=== PATIENT | male | born 1995 | race Caucasian/White ===

== ENCOUNTER 2024-06-04 18:55 | Emergency (ER) | payer OTHER ==
[2024-06-04 19:03] VITALS: TEMP 98
[2024-06-04 21:10] LABS: Basophils # (A) 0.1 k/uL (0-0.2); Basophils % (A) 1 %; Eosinophils # (A) 0.3 k/uL (0-0.7); Eosinophils % (A) 2 %; HCT 52.8 % (39.0-53.0); HGB 17.5 gm/dL (13.0-17.5); Lymphocytes % (A) 27 %; MCH 29.9 pg (25.0-35.0); MCHC 33.2 g/dL (31.0-37.0); MCV 90.2 fL (80.0-100.0); Mean Platelet Volume 7.5; Monocytes # (A) 0.7 k/uL (0-1.0); Monocytes % (A) 6 %; Neutrophils % (A) 62 %; Platelet Count 261 k/uL (150-450); RBC 5.86 m/uL (4.30-5.90); RDW 13.6 % (11.5-15.5); WBC 11.2 k/uL (3.8-10.6)
--- NOTE | 2024-06-04 21:20 | XR ---
EXAMINATION TYPE: XR chest 2V DATE OF EXAM: 06/04/2024 9:11 PM CLINICAL INDICATION: Male, 29 years old with history of shoulder/chest pain; COMPARISON: Chest radiographs from TECHNIQUE: XR chest 2V Frontal view of the chest. FINDINGS: Lungs/Pleura: There is no evidence of pleural effusion, focal consolidation, or pneumothorax. Pulmonary vascularity: Unremarkable. Heart/mediastinum: Cardiomediastinal silhouette is unremarkable. Musculoskeletal: No acute osseous pathology. IMPRESSION: No acute cardiopulmonary disease/process.
[2024-06-04 21:23] LABS: ALT 19 U/L (4-49); AST 28 U/L (17-59); African American GFR (CKD) >90 (>60 ml/min/1.73 sqM); Albumin 5.5 g/dL (3.5-5.0); Alkaline Phosphatase 58 U/L (38-126); Anion Gap 11 mmol/L; Blood Urea Nitrogen 9 mg/dL (9-20); Calcium 10.4 mg/dL (8.4-10.2); Carbon Dioxide 26 mmol/L (22-30); Chloride 101 mmol/L (98-107); Glucose 87 mg/dL (74-99); Non-African American GFR(CKD) >90 (>60 ml/min/1.73 sqM); Potassium 4.5 mmol/L (3.5-5.1); Sodium 138 mmol/L (137-145); Total Bilirubin 0.8 mg/dL (0.2-1.3); Total Protein 8.6 g/dL (6.3-8.2)
[2024-06-04] MEDS: hydrOXYzine HCL 25 MG TAB PO STA (21:27)
--- NOTE | 2024-06-04 22:17 | ED ---
General Adult HPI - General Chief complaint: Extremity Injury, Upper Stated complaint: R Shoulder Burning Time Seen by Provider: 06/04/24 19:33 Source: patient Mode of arrival: ambulatory Limitations: no limitations - History of Present Illness Initial comments: 29-year-old male presenting with chief complaint of burning sensation in his left shoulder. States that he has been to multiple urgent cares and ERs for this issue. He feels the burning in his shoulder that travels down to the superior portion of his chest. He states "I think I freak myself out", states that at times this can be followed by palpitations, rapid breathing, sensation of warmth, tingling of the extremities. He has been told that he has anxiety and has been prescribed hydroxyzine, however he was afraid to take it. He is having no current chest pain. No injury or trauma. Pain is not worse with movement. - Related Data Home Medications Medication Instructions Recorded Confirmed No Known Home Medications 09/17/14 09/17/14 Allergies Allergy/AdvReac Type Severity Reaction Status Date / Time No Known Allergies Allergy Verified 06/04/24 19:03 Review of Systems ROS Statement: Those systems with pertinent positive or pertinent negative responses have been documented in the HPI. ROS Other: All systems not noted in ROS Statement are negative. Past Medical History Past Medical History: No Reported History Additional Past Medical History / Comment(s): heart murmur History of Any Multi-Drug Resistant Organisms: None Reported Past Surgical History: Ear Surgery Past Psychological History: No Psychological Hx Reported Smoking Status: Current every day smoker Past Alcohol Use History: Rare Past Drug Use History: None Reported General Exam Limitations: no limitations General appearance: alert, in no apparent distress Head exam: Present: atraumatic, normocephalic, normal inspection Eye exam: Present: normal appearance, EOMI Neck exam: Present: normal inspection. Absent: meningismus Respiratory exam: Absent: respiratory distress Cardiovascular Exam: Present: regular rate Left Shoulder Exam: Present: normal inspection, full ROM. Absent: tenderness, swelling Neurological exam: Present: alert, oriented X3 Psychiatric exam: Present: normal affect, normal mood Skin exam: Present: warm, dry Course Vital Signs 06/04/24 06/04/24 06/04/24 19:01 19:57 20:47 Temperature 98.0 F Pulse Rate 90 87 87 Respiratory 17 18 18 Rate Blood Pressure 166/88 147/93 147/87 O2 Sat by Pulse 100 99 100 Oximetry 06/04/24 22:57 Temperature Pulse Rate 80 Respiratory 16 Rate Blood Pressure 134/80 O2 Sat by Pulse 99 Oximetry Medical Decision Making - Medical Decision Making Was pt. sent in by a medical professional or institution ([facility] Stephen, [employer], urgent care, hospital, or intermediate...) When possible be specific @ -No Did you speak to anyone other than the patient for history (EMS, parent, family, police, friend...)? What history was obtained from this source @ -No Did you review nursing and triage notes (agree or disagree)? Why? @ -I reviewed and agree with nursing and triage notes Were old charts reviewed (outside hosp., previous admission, EMS record, old EKG, old radiological studies, urgent care reports/EKG's, intermediate records)? Report findings @ -No old charts were reviewed Differential Diagnosis (chest pain, altered mental status, abdominal pain women, abdominal pain men, vaginal bleeding, weakness, fever, dyspnea, syncope, headache, dizziness, GI bleed, back pain, seizure, CVA, palpatations, mental health, musculoskeletal)? @ -Differential Musculoskeletal Muscular strain, contusion, ligament sprain, fracture, arthritis, septic arthritis, bursitis, cellulitis, muscle spasm, nerve compression, DVT, arterial occlusion, herpes zoster, electrolyte abnormality, tumor.... This is not meant to be in all inclusive list EKG interpreted by me (3pts min.). @ -EKG shows sinus rhythm ventricular rate 84. ID interval 124. QRS 101. QT 338. QTc 379. Possible LVH, may also be due to the patient's body habitus but there are large QRS complexes and tall T waves in leads V3 through V5. X-rays interpreted by me (1pt min.). @ -Chest x-ray shows no acute process CT interpreted by me (1pt min.). @ -None U/S interpreted by me (1pt. min.). @ -None done What testing was considered but not performed or refused? (CT, X-rays, U/S, labs)? Why? @ -None What meds were considered but not given or refused? Why? @ -None Did you discuss the management of the patient with other professionals (professionals i.e. Dr., PA, SLIDE MAKER, lab, RT, psych nurse, social media analyst, computing consultant, teacher, textile technical officer, family service caseworker)? Give summary @ -No Was smoking cessation discussed for >3mins.? @ -No Was critical care preformed (if so, how long)? @ -No Were there social determinants of health that impacted care today? How? (Homelessness, low income, unemployed, alcoholism, drug addiction, transportation, low edu. Level, literacy, decrease access to med. care, group home, re hab)? @ -No Was there de-escalation of care discussed even if they declined (Discuss DNR or withdrawal of care, Hospice)? DNR status @ -No What co-morbidities impacted this encounter? (DM, HTN, Smoking, COPD, CAD, Cancer, CVA, ARF, Chemo, Hep., AIDS, mental health diagnosis, sleep apnea, morbid obesity)? @ -None Was patient admitted / discharged? Hospital course, mention meds given and route, prescriptions, significant lab abnormalities, going to OR and other pertinent info. @ -29-year-old male presenting with chief complaint of burning sensation in his shoulder. He is concerned that this may have something to do with his heart and has been seen at multiple facilities. He has been told that he has anxiety and he does believe that he starts to panic more when he gets the symptoms. History and physical exam are conducted. WBC 11.2. Chest x-ray shows no acute process EKG shows no ischemic changes. There are enlarged QRS complexes and tall T waves in leads V3 through V5. Patient was given hydroxyzine. On reassessment he reports improvement in his symptoms. He is educated on today's findings. He is provided with PCP suggestions and follow-up with cardiology. Discharged ho me. Follow-up with PCP. Report back to ER with any new or worsening symptoms. Discussed return parameters and answered all questions. Patient conveyed verbal understanding and agreed to the plan. I discussed this case in detail with my attending Dr. salazar Undiagnosed new problem with uncertain prognosis? @ -No Drug Therapy requiring intensive monitoring for toxicity (Heparin, Nitro, Insulin, Cardizem)? @ -No Were any procedures done? @ -No Diagnosis/symptom? @ -Anxiety Acute, or Chronic, or Acute on Chronic? @ -Acute Uncomplicated (without systemic symptoms) or Complicated (systemic symptoms)? @ -Complicated Side effects of treatment? @ -No Exacerbation, Progression, or Severe Exacerbation? @ -No Poses a threat to life or bodily function? How? (Chest pain, USA, NM, pneumonia, PE, COPD, DKA, ARF, appy, cholecystitis, CVA, Diverticulitis, Homicidal, Suicidal, threat to staff... and all critical care pts) @ -Unlikely - Lab Data Result diagrams: 06/04/24 20:39 06/04/24 20:39 Lab Results 06/04/24 06/04/24 06/04/24 Range/Units 20:39 20:39 20:39 WBC 11.2 H (3.8-10.6) k/uL RBC 5.86 (4.30-5.90) m/uL Hgb 17.5 (13.0-17.5) gm/dL Hct 52.8 (39.0-53.0) % MCV 90.2 (80.0-100.0) fL MCH 29.9 (25.0-35.0) pg MCHC 33.2 (31.0-37.0) g/dL RDW 13.6 (11.5-15.5) % Plt Count 261 (150-450) k/uL MPV 7.5 Neutrophils % 62 % Lymphocytes % 27 % Monocytes % 6 % Eosinophils % 2 % Basophils % 1 % Neutrophils # 7.0 (1.3-7.7) k/uL Lymphocytes # 3.0 (1.0-4.8) k/uL Monocytes # 0.7 (0-1.0) k/uL Eosinophils # 0.3 (0-0.7) k/uL Basophils # 0.1 (0-0.2) k/uL Sodium 138 (137-145) mmol/L Potassium 4.5 (3.5-5.1) mmol/L Chloride 101 (98-107) mmol/L Carbon Dioxide 26 (22-30) mmol/L Anion Gap 11 mmol/L BUN 9 (9-20) mg/dL Creatinine 0.99 (0.66-1.25) mg/dL Est GFR (CKD-EPI)AfAm >90 (>60 ml/min/1.73 sqM) Est GFR (CKD-EPI)NonAf >90 (>60 ml/min/1.73 sqM) Glucose 87 (74-99) mg/dL Calcium 10.4 H (8.4-10.2) mg/dL Total Bilirubin 0.8 (0.2-1.3) mg/dL AST 28 (17-59) U/L ALT 19 (4-49) U/L Alkaline Phosphatase 58 (38-126) U/L Troponin I <0.012 (0.000-0.034) ng/mL Total Protein 8.6 H (6.3-8.2) g/dL Albumin 5.5 H (3.5-5.0) g/dL Disposition Clinical Impression: Anxiety, Atypical chest pain Disposition: HOME SELF-CARE Condition: Good Instructions (If sedation given, give patient instructions): Chest Pain (ED), Anxiety (ED) Additional Instructions: Follow-up with PCP and cardiology. Report back to ER with any new or worsening symptoms. Is patient prescribed a controlled substance at d/c from ED?: No Referrals: Elan Corona MD [STAFF PHYSICIAN] - 1-2 days None,Stated [Primary Care Provider] - 1-2 days Dale Portillo MD [STAFF PHYSICIAN] - 1-2 days Toño Millan MD [STAFF PHYSICIAN] - 1-2 days Time of Disposition: 22:17
[2024-06-04 23:01] VITALS: BP 134/80; PULSE 80; RESP 16
== END 2024-06-04 23:09 | disposition home or self-care (01) ==
LOC: EC 18:55
DX: R52 Pain, unspecified
CPT/HCPCS: 36415; 71046; 80053; 84484; 85025; 93005; 99284

== ENCOUNTER → 2024-07-06 | Outpatient (CLI) | payer OTHER ==
--- NOTE | 2024-07-07 07:59 | CA ---
Transthoracic Echo Report Name: Stan Pereira Age: 29 Gender: M : 1995 Exam Date: 07/06/2024 17:46 Exam Location: [facility] Ht (in): 72 Wt (lb): 135 Ordering Physician: Elan Corona MD Attending/Referring Phys: Chloe KRISHNAN Group Leader [employer] Nicole Melendez RDCS Procedure CPT: Indications: R01.1 cardiac murmur Cardiac Hx: Technical Quality: Fair Contrast 1: Total Dose (mL): Contrast 2: Total Dose (mL): MEASUREMENTS (Male / Female) Normal Values 2D ECHO LV Diastolic Diameter PLAX 5.8 cm 4.2 - 5.9 / 3.9 - 5.3 cm LV Systolic Diameter PLAX 3.2 cm IVS Diastolic Thickness 1.3 cm 0.6 - 1.0 / 0.6 - 0.9 cm LVPW Diastolic Thickness 1.7 cm 0.6 - 1.0 / 0.6 - 0.9 cm LV Relative Wall Thickness 0.5 RV Internal Dim ED PLAX 2.8 cm LA Volume 169.5 cm??? 18 - 58 / 22 - 52 cm??? LA Volume Index 96.9 cm???/m??? 16 - 28 cm???/m??? M-MODE Aortic Root Diameter MM 4.1 cm LA Systolic Diameter MM 5.0 cm LA Ao Ratio MM 1.2 AV Cusp Separation MM 2.2 cm DOPPLER AV Peak Velocity 116.4 cm/s AV Peak Gradient 5.4 mmHg AV Mean Velocity 65.6 cm/s AV Mean Gradient 2.2 mmHg AV Velocity Time Integral 12.5 cm LVOT Peak Velocity 89.1 cm/s LVOT Peak Gradient 3.2 mmHg LVOT Velocity Time Integral 10.8 cm MV Peak Velocity 205.9 cm/s MV Peak Gradient 17.0 mmHg MV Mean Velocity 95.8 cm/s MV Mean Gradient 4.7 mmHg MV Velocity Time Integral 44.5 cm MV Area PHT 4.1 cm??? MR Peak Velocity 503.2 cm/s MR Peak Gradient 101.3 mmHg Mitral E Point Velocity 153.3 cm/s Mitral A Point Velocity 69.6 cm/s Mitral E to A Ratio 2.2 MV Deceleration Time 182.9 ms MV E' Velocity 11.6 cm/s Mitral E to MV E' Ratio 13.2 TR Peak Velocity 223.0 cm/s TR Peak Gradient 19.9 mmHg Right Ventricular Systolic Press 24.9 mmHg FINDINGS Left Ventricle Mildly increased left ventricular wall thickness. Normal left ventricular systolic function with no obvious regional wall motion abnormalities. Left ventricular ejection fraction is estimated at 55-60 %. Grade 1 diastolic dysfunction. Right Ventricle Normal right ventricular size and function. Right ventricular systolic pressure within normal limits. Right Atrium Normal right atrial size. Left Atrium Severely increased left atrial volume. Severely increased left atrial area. Mitral Valve Severe prolapse of the anterior mitral valve leaflet. Severe prolapse of the posterior mitral valve leaflet. Severe mitral regurgitation. Anteriorly directed mitral regurgitation jet. Aortic Valve Trileaflet aortic valve. No aortic valve stenosis or regurgitation. Tricuspid Valve Structurally normal tricuspid valve. No tricuspid stenosis, regurgitation or prolapse. Pulmonic Valve Structurally normal pulmonic valve. Trace pulmonic regurgitation. Pericardium No pericardial effusion. Aorta Normal size aortic root and proximal ascending aorta. CONCLUSIONS Severe mitral valve prolapse with severe mitral regurgitation that is predominantly anteriorly directed Ejection fraction of 55-60% Severely dilated left atrium Consider transesophageal echo for further evaluation of the mitral regurgitation Previewed by: Dr. Mason Pan MD (Electronically Signed) Final Date: 07 July 2024 07:58
== END | disposition home or self-care (01) ==
LOC: RADECHMAIN 17:38
PROVIDERS: ATTEND Family Medicine
DX: R01.1 Cardiac murmur, unspecified
CPT/HCPCS: 93306

== ENCOUNTER 2024-08-18 07:45 | Day surgery (SDC) | payer OTHER ==
[2024-08-15 16:04] VITALS: BMI 19.2
[2024-08-18] MEDS: SODIUM CHLORIDE 0.9% 500 ML 500 ML IV ONE (07:57)
[2024-08-18 08:01] VITALS: TEMP 98.3
[2024-08-18 08:16] VITALS: RESP 16
[2024-08-18] MEDS: MIDAZOLAM 2 MG/2 ML VIAL IVP ONE (08:24)
[2024-08-18] MEDS: BENZOCAINE SPRAY 1 EACH MM ONE (08:24)
[2024-08-18] MEDS: fentaNYL (PF) 50 MCG/ML 2 ML AMP IVP ONE (08:24)
[2024-08-18 09:53] VITALS: BP 153/85; PULSE 78
--- NOTE | 2024-08-18 10:26 | ECHOT ---
TRANSESOPHAGEAL ECHOCARDIOGRAM INDICATION: Mitral regurgitation. PROCEDURE NOTE: After obtaining informed consent, transesophageal echocardiogram was performed in left lateral position using an Omniplane probe. Local and IV sedation were obtained using Xylocaine spray, 1 mg Versed and 50 mcg of fentanyl. The patient tolerated the procedure well without any obvious immediate complications. Total sedation time was 10 minutes. FINDINGS: 1. Mitral valve shows mitral valve prolapse predominantly involving the posterior mitral leaflet with severe anteriorly directed mitral regurgitation. Left atrium appears enlarged. Right atrium and right ventricle seen within normal limits. 2. Left ventricle has normal size and systolic function. There is aortic annular ectasia. It measures about 3.7 cm. Aortic valve is a 3-leaflet valve. There is no evidence of aortic stenosis or regurgitation. There is mild tricuspid regurgitation. Interatrial septum, there is no evidence of [id number] shunt by color-flow Doppler or [id number] shunt by agitated saline contrast study. CONCLUSION: Severe anteriorly directed mitral regurgitation with prolapse of the posterior mitral leaflet. PLAN: I am going to perform cardiac catheterization and refer the patient for mitral valve repair. My office will call and set up the heart catheterization. MMODL / IJN: [id number] /
== END 2024-08-18 09:33 | disposition home or self-care (01) ==
LOC: CATHCVL 07:45
PROVIDERS: ATTEND Internal Medicine Cardiovascular Disease
DX: I34.0 Nonrheumatic mitral (valve) insufficiency (principal); F17.210 Nicotine dependence, cigarettes, uncomplicated; Z83.49 Family history of other endocrine, nutritional and metabolic diseases; Z79.51 Long term (current) use of inhaled steroids
CPT/HCPCS: 93312; 93320; 93325; J2250; J3010

== ENCOUNTER 2024-09-20 08:42 | Day surgery (SDC) | payer OTHER ==
[~2024-09-20 08:42] MED LIST: ALPRAZolam 0.25 MG TAB PO PRN; ALPRAZolam 0.5 MG TAB PO PRN; NITROGLYCERIN SL TABS 0.4 MG TAB SUBLINGUAL PRN
[2024-09-20] MEDS: IV FLUID CONTINUATION 1,000 ML IV ONE (08:54)
[2024-09-20] MEDS: ASPIRIN 325 MG TAB PO STA (09:15)
[2024-09-20] MEDS: SODIUM CHLORIDE 0.9% 1,000 ML in EMPTY BAG 1 BAG IV SCH (09:16)
[2024-09-20 09:24] LABS: Basophils # (A) 0.1 k/uL (0-0.2); Basophils % (A) 1 %; Eosinophils # (A) 0.1 k/uL (0-0.7); Eosinophils % (A) 1 %; HCT 49.7 % (39.0-53.0); HGB 16.8 gm/dL (13.0-17.5); Lymphocytes # (A) 2.6 k/uL (1.0-4.8); Lymphocytes % (A) 38 %; MCHC 33.7 g/dL (31.0-37.0); MCV 88.9 fL (80.0-100.0); Mean Platelet Volume 7.2; Monocytes # (A) 0.5 k/uL (0-1.0); Monocytes % (A) 8 %; Neutrophils # (A) 3.3 k/uL (1.3-7.7); Neutrophils % (A) 50 %; Platelet Count 219 k/uL (150-450); RBC 5.59 m/uL (4.30-5.90); RDW 13.1 % (11.5-15.5); WBC 6.7 k/uL (3.8-10.6)
[2024-09-20 09:26] VITALS: RESP 18; TEMP 97.8
[2024-09-20 09:45] LABS: African American GFR (CKD) >90 (>60 ml/min/1.73 sqM); Anion Gap 8 mmol/L; Blood Urea Nitrogen 14 mg/dL (9-20); Carbon Dioxide 29 mmol/L (22-30); Chloride 101 mmol/L (98-107); Glucose 105 mg/dL (74-99); Non-African American GFR(CKD) 88 (>60 ml/min/1.73 sqM); Potassium 4.2 mmol/L (3.5-5.1); Sodium 138 mmol/L (137-145)
[2024-09-20] MEDS: LIDOCAINE 1% INJ 10MG/ML (20 ML MDV) SQ ONE (10:47)
[2024-09-20] MEDS: MIDAZOLAM 2 MG/2 ML VIAL IVP ONE (10:47)
[2024-09-20] MEDS: fentaNYL (PF) 50 MCG/1 ML VIAL IVP ONE (10:47)
[2024-09-20] MEDS: VERAPAMIL SYRINGE (5 MG/10 ML) INTRAARTER ONE (10:49)
[2024-09-20] MEDS: HEPARIN SODIUM 1,000 UN/ML (10ML VL) IVP ONE (10:56)
[2024-09-20] MEDS: IOPAMIDOL-370 100ML BTL INJ ONE (11:11)
[2024-09-20] MEDS ORDERED: RX INFO: IV CONTRAST WAS GIVEN 1 EACH MISC MISCELLANE PRN (11:42)
[2024-09-20] MEDS ORDERED: SODIUM CHLORIDE 0.9% 1,000 ML IV SCH (11:45)
[2024-09-20 14:55] VITALS: BP 129/73; PULSE 80
--- NOTE | 2024-09-20 21:58 | CC ---
CARDIAC CATHETERIZATION REPORT INDICATION: Severe mitral regurgitation. PROCEDURE NOTE: After obtaining informed consent, left heart catheterization was performed via the right radial artery using standard Ada catheters. The patient tolerated the procedure well without any obvious immediate complications, received moderate conscious sedation. Total sedation time was 21 minutes. The right radial artery access was obtained using Seldinger technique. A 6-Swedish sheath was placed. Catheters and wires were floated into the ascending aorta under fluoroscopic guidance. The patient received verapamil and heparin per protocol. A TR band will be used for hemostasis. FINDINGS: 1. Hemodynamics: Left ventricular end-diastolic pressure is 7 to 10 mm. There is no significant gradient across the aortic valve. 2. Left ventriculogram: Left ventriculogram is performed in VICTOR position and shows mildly dilated left ventricle with normal LV function and 2 to 3+ mitral regurgitation. 3. ANGIOGRAPHIC DATA: a.Right coronary artery: Right coronary artery is a large dominant vessel and is free of stenosis. b.Left main coronary artery is a short vessel, divides into left anterior descending coronary artery and circumflex coronary artery. c.LAD and its branches, circumflex coronary artery and its branches are free of significant stenosis. CONCLUSIONS: 1. Normal coronary arteries. 2. 2 to 3+ mitral regurgitation. 3. Normal LV function. 4. Aortic root appears normal. PLAN: I am going to talk to the patient about mitral valve repair and his followup. MMODL / IJN: [id number] /
== END 2024-09-20 14:57 | disposition home or self-care (01) ==
LOC: CATHCVL 08:42
PROVIDERS: ATTEND Internal Medicine Cardiovascular Disease
DX: I34.0 Nonrheumatic mitral (valve) insufficiency (principal); J44.9 Chronic obstructive pulmonary disease, unspecified; Z79.899 Other long term (current) drug therapy; Z87.891 Personal history of nicotine dependence; Z82.49 Family history of ischemic heart disease and other diseases of the circulatory system
CPT/HCPCS: 93458; 80048; 85025; J2250; J2003; J1644; Q9967; J3010

== ENCOUNTER 2024-10-06 13:50 | Emergency (ER) | payer OTHER ==
--- NOTE | 2024-10-06 14:31 | ED ---
Chest Pain HPI - General Chief Complaint: Chest Pain Stated Complaint: WALLY Time Seen by Provider: 10/06/24 14:20 Source: patient, RN notes reviewed Mode of arrival: ambulatory Limitations: no limitations - History of Present Illness Initial Comments: This is a 29-year-old male who presents to the emergency department for chest pain. States that yesterday he started to develop pain in the right side of his chest underneath his right rib cage. Today he noticed that whenever he tried to take a deep breath it would cause him pain. It is not hard to breathe and he is not short of breath, he just has pain when he tries to breathe. He has not had any other coughing, congestion, or URI symptoms otherwise. He also denies any episodes of diaphoresis, nausea, or vomiting. MD Complaint: chest pain - Related Data Home Medications Medication Instructions Recorded Confirmed Albuterol Sulfate [Ventolin HFA] 1 - 2 puff INHALATION QID PRN 07/28/24 09/20/24 Previous Rx's Medication Instructions Recorded Diltiazem Cd [Cardizem CD] 120 mg PO DAILY #90 cap 09/20/24 Naproxen Sodium 550 mg PO BID PRN #30 tablet 10/06/24 methocarbamoL [Robaxin-750] 1,500 mg PO TID PRN #20 tab 10/06/24 Allergies Allergy/AdvReac Type Severity Reaction Status Date / Time No Known Allergies Allergy Verified 10/06/24 14:32 Review of Systems ROS Statement: Those systems with pertinent positive or pertinent negative responses have been documented in the HPI. ROS Other: All systems not noted in ROS Statement are negative. Past Medical History Past Medical History: Chest Pain / Angina, COPD, Mitral Valve Prolapse (MVP) Additional Past Medical History / Comment(s): heart murmur, "MVP/regurgitation" chest pain due to anxiety History of Any Multi-Drug Resistant Organisms: None Reported Past Surgical History: Adenoidectomy, Ear Surgery Additional Past Surgical History / Comment(s): Tubes in bilat ears. Past Anesthesia/Blood Transfusion Reactions: No Reported Reaction Additional Past Anesthesia/Blood Transfusion Reaction / Comment(s): No hx of blood transfusion to date. Smoking Status: Former smoker - Past Family History Mother Family Medical History: No Reported History General Exam Limitations: no limitations General appearance: alert, in no apparent distress Head exam: Present: atraumatic, normocephalic, normal inspection Respiratory exam: Present: normal lung sounds bilaterally. Absent: respiratory distress, wheezes, rales, rhonchi, stridor Cardiovascular Exam: Present: regular rate, normal rhythm GI/Abdominal exam: Present: soft, normal bowel sounds. Absent: distended, tenderness, guarding, rebound, rigid Neurological exam: Present: alert, oriented X3, CN II-XII intact Psychiatric exam: Present: normal affect, normal mood Skin exam: Present: warm, dry, intact, normal color. Absent: rash Course Vital Signs 10/06/24 10/06/24 10/06/24 14:32 15:34 15:39 Temperature 97.8 F Pulse Rate 81 75 Respiratory 16 16 20 Rate Blood Pressure 148/88 152/87 O2 Sat by Pulse 98 98 Oximetry 10/06/24 16:22 Temperature Pulse Rate 65 Respiratory 16 Rate Blood Pressure 145/60 O2 Sat by Pulse 98 Oximetry Chest Pain MDM - [facility] This is a 29-year-old male who presents to the emergency department for chest pain. Was pt. sent in by a medical professional or institution? @ -No Did you speak to anyone other than the patient for history? @ -No Did you review nursing and triage notes? @ -Yes, and I agree, it is accurate with regards to the patient's symptoms. Were old charts reviewed? @ -Cardiac catheterization from 09/20/2024 revealing normal coronary arteries. Differential Diagnosis? @ -Differential Chest Pain: Stable Angina, Unstable Angina, STEMI, NSTEMI Aortic Dissection, Pneumothorax, Musculoskeletal, Esophageal Spasm GERD, Cholecystitis, Pancreatitis, Zoster, this is not meant to be an all-inclusive list. EKG interpreted by me (3pts min.)? @ -EKG interpreted by me demonstrating the following: Sinus rhythm. Ventricular rate 77 bpm, ME interval 145 ms, QRS duration 105 ms, QTc 375 ms. X-rays interpreted by me (1pt min.)? @ -Chest x-ray obtained, my interpretation identifies no localized conso lidations or infiltrates. CT interpreted by me (1pt min.)? @ -Not obtained U/S interpreted by me (1pt. min.)? @ -Not obtained What testing was considered but not performed? (CT, X-rays, U/S, labs)? Why? @ -None What meds were considered but not given? Why? @ -None Did you discuss the management of the patient with other professionals? @ -No Did you reconcile home meds? @ -No Was smoking cessation discussed for >3mins.? @ -No Was critical care preformed (if so, how long)? @ -No Were there social determinants of health that impacted care today? How? (Homelessness, low income, unemployed, alcoholism, drug addiction, transportation, low edu. Level, literacy, decrease access to med. care, fpc, rehab)? @ -No Was there de-escalation of care discussed even if they declined? (Discuss DNR or withdrawal of care, Hospice)? @ -No What co-morbidities impacted this encounter? (DM, HTN, Smoking, COPD, CAD, Cancer, CVA, Hep., AIDS, mental health diagnosis, sleep apnea, morbid obesity)? @ -Mitral valve prolapse Was patient admitted / discharged? @ -Discharged. Lab work unremarkable. D-dimer and troponin negative. Patient's symptoms are likely musculoskeletal in nature or related to something along the lines of pleurisy. He only experiences right sided sharp chest pain when taking deep breaths. He had a cardiac catheterization on 09/20/2024 that revealed normal coronary arteries. He was treated with Toradol in the emergency department. Prescription for naproxen and Robaxin provided with dosing instructions reviewed. Advised follow-up with his PCP and material flow engineer. Patient discharged home in stable condition. Case discussed with ED attending Dr. Huizar. Return precautions reviewed in depth, the patient is instructed to return to the emergency department with any new, worsening, or concerning symptoms. Patient verbalized understanding. Undiagnosed new problem with uncertain prognosis? @ -None Drug Therapy requiring intensive monitoring for toxicity (Heparin, Nitro, Insulin, Cardizem)? @ -None Were any procedures done? @ -None Diagnosis/symptom? @ -Pleuritic chest pain Acute, or Chronic, or Acute on Chronic? @ -Acute Uncomplicated (without systemic symptoms) or Complicated (systemic symptoms)? @ -Uncomplicated Side effects of treatment? @ -None Exacerbation, Progression, or Severe Exacerbation] @ -Not applicable Poses a threat to life or bodily function? @ -Unlikely Disposition Clinical Impression: Pleurisy, Pleuritic chest pain Disposition: HOME SELF-CARE Instructions (If sedation given, give patient instructions): Pleurisy (ED) Additional Instructions: Return to the emergency department with any new, worsening, or concerning symptoms. Take the naproxen twice daily as needed for pain relief. Take the Robaxin as 1 to 2 tablets up to 3-4 times daily. Follow up with your primary care provider in 1-2 days. Prescriptions: Naproxen Sodium 550 mg PO BID PRN #30 tablet PRN Reason: Pain methocarbamoL [Robaxin-750] 1,500 mg PO TID PRN #20 tab PRN Reason: Pain Is patient prescribed a controlled substance at d/c from ED?: No Referrals: Elan Corona MD [Primary Care Provider] - 1-2 days Time of Disposition: 16:15
[2024-10-06 14:35] VITALS: TEMP 97.8
[2024-10-06 15:22] LABS: Basophils % (A) 1 %; Eosinophils # (A) 0.1 k/uL (0-0.7); Eosinophils % (A) 2 %; HCT 48.5 % (39.0-53.0); HGB 16.4 gm/dL (13.0-17.5); Lymphocytes # (A) 2.4 k/uL (1.0-4.8); Lymphocytes % (A) 30 %; MCH 29.9 pg (25.0-35.0); MCHC 33.9 g/dL (31.0-37.0); MCV 88.1 fL (80.0-100.0); Mean Platelet Volume 7.7; Monocytes # (A) 0.5 k/uL (0-1.0); Monocytes % (A) 7 %; Neutrophils # (A) 4.8 k/uL (1.3-7.7); Neutrophils % (A) 59 %; Platelet Count 223 k/uL (150-450); RDW 13.1 % (11.5-15.5)
[2024-10-06 15:30] LABS: ALT 16 U/L (4-49); AST 19 U/L (17-59); African American GFR (CKD) >90 (>60 ml/min/1.73 sqM); Alkaline Phosphatase 44 U/L (38-126); Anion Gap 8 mmol/L; Blood Urea Nitrogen 14 mg/dL (9-20); Calcium 10.2 mg/dL (8.4-10.2); Carbon Dioxide 31 mmol/L (22-30); Chloride 100 mmol/L (98-107); Glucose 92 mg/dL (74-99); Non-African American GFR(CKD) 80 (>60 ml/min/1.73 sqM); Potassium 4.4 mmol/L (3.5-5.1); Sodium 139 mmol/L (137-145); Total Bilirubin 0.7 mg/dL (0.2-1.3); Total Protein 7.6 g/dL (6.3-8.2)
[2024-10-06] MEDS: KETOROLAC 15 MG/ML 1 ML VIAL IVP STA (15:33)
--- NOTE | 2024-10-06 15:53 | XR ---
EXAMINATION TYPE: XR chest 2V DATE OF EXAM: 10/06/2024 3:37 PM COMPARISON: Chest radiographs from 06/04/2024 CLINICAL INDICATION: Male, 29 years old with history of Chest pain; [facility] TECHNIQUE: XR chest 2V Frontal and lateral views of the chest. FINDINGS: Lungs/Pleura: There is no evidence of pleural effusion, focal consolidation, or pneumothorax. Pulmonary vascularity: Unremarkable. Heart/mediastinum: Cardiomediastinal silhouette is unremarkable. Musculoskeletal: No acute osseous pathology. IMPRESSION: No acute cardiopulmonary disease/process. [facility], , 10/06/2024 3:50 PM
[2024-10-06 16:23] VITALS: BP 145/60; PULSE 65; RESP 16
== END 2024-10-06 16:22 | disposition home or self-care (01) ==
LOC: EC 13:50
DX: R09.1 Pleurisy (principal); I34.1 Nonrheumatic mitral (valve) prolapse; Z87.891 Personal history of nicotine dependence
CPT/HCPCS: 36415; 93005; 85379; 80053; 84484; 85025; 87636; 71046; 99285; 96374; J1885